=== PATIENT | male | born 1975 | race Caucasian/White ===

== ENCOUNTER 2016-12-29 06:08 | Emergency (ER) | payer OTHER ==
[2016-12-29] MEDS ORDERED: SODIUM CHLORIDE 1,000 ML IV STA (06:36)
[2016-12-29] MEDS ORDERED: ACETAMINOPHEN 1000 MG/100 ML VIAL (NON FORMULARY) IVPB ONE (06:36)
[2016-12-29] MEDS ORDERED: ALBUTEROL SO4 2.5/IPRATROPIUM 0.5 INH SOL 3 ML VIAL.NEB. NEB ONE (06:36)
--- NOTE | 2016-12-29 06:37 | PDOC ---
History of Present Illness - General Stated Complaint: DIFFICULTY BREATHING Time Seen by Provider: 12/29/16 06:28 History Source: Patient Exam Limitations: No Limitations - History of Present Illness Initial Comments: 12/29/16 07:00 41-year-old male with history of HIV presents to the ED with complaints of nasal congestion, sore throat cough, and myalgia for the past 4 days. Patient states also had an episode of anxiety this morning causing him shortness of breath and palpitations which resolved by the time he arrived here to the ER. Patient does state history of bronchitis and states smokes cigarettes daily. Patient denies recorded temperature, history of PCP, recent travel, and recent illness. Timing/Duration: reports: other (3-4 days) Severity: reports: moderate Modifying Factors: improves with: coughing Associated Symptoms: reports: cough, muscle aches, nasal drainage, shortness of breath, sore throat. denies: fever/chills, headache Past History - Past Medical History Allergies/Adverse Reactions: Allergies Allergy/AdvReac Type Severity Reaction Status Date / Time No Known Allergies Allergy Verified 12/29/16 06:36 Home Medications: Ambulatory Orders Abacavir/Dolutegravir/Lamivudi [Triumeq Tablet] 1 each PO DAILY 12/29/16 HIV: Yes - Psycho/Social/Smoking Cessation Hx Anxiety: No Suicidal Ideation: No Smoking History: Never smoked Have you smoked in the past 12 months: Yes Number of Cigarettes Smoked Daily: 5 Hx Alcohol Use: No Drug/Substance Use Hx: No Substance Use Type: None Patient Lives Alone: No Review of Systems - Review of Systems Able to Perform ROS?: Yes Constitutional: Yes: Weakness HEENTM: Yes: Nose Congestion, Throat Pain Respiratory: Yes: Cough, Shortness of Breath Cardiac (ROS): Yes: Palpitations ABD/GI: No: Symptoms Reported Musculoskeletal: Yes: Muscle Pain Integumentary: No: Symptoms Reported Neurological: Yes: Weakness (mild) Endocrine: No: Symptoms Reported Hematologic/Lymphatic: No: Symptoms Reported *Physical Exam - Physical Exam General Appearance: Yes: Nourished, Appropriately Dressed. No: Apparent Distress HEENT: positive: EOMI, NOÉ, TMs Normal, Pharynx Normal, Nasal Congestion. negative: Muffled/Hoarse voice ( nasally), Pharyngeal Erythema, Tonsillar Exudate, Rhinorrhea, Sinus Tenderness, TM Erythema Neck: positive: Supple. negative: Lymphadenopathy (R), Lymphadenopathy (L) Respiratory/Chest: positive: Lungs Clear, Normal Breath Sounds. negative: Respiratory Distress, Accessory Muscle Use Cardiovascular: positive: Regular Rhythm, Regular Rate. negative: Murmur Gastrointestinal/Abdominal: positive: Soft. negative: Tenderness Integumentary: positive: Normal Color, Warm, Moist Neurologic: positive: Motor Strength 5/5 (ambulatory). negative: Normal Mood/ Affect (mildly anxious) Heart Score/ECG Review - ECG Intrepretation Rhythm: Regular Rhythm (normal sinus rhythm at 86. No acute ST elevation or depression. QTC 423) ED Treatment Course - LABORATORY CBC & Chemistry Diagram: 12/29/16 01:00 12/29/16 01:00 Medical Decision Making - Medical Decision Making 12/29/16 08:07 Patient complains of nasal congestion, cough, and myalgia for the past 3-4 days but states had an anxiety attack this morning. Patient arrives here with nasal congestion, stable vital signs, and mild anxiety. Patient ordered for EKG, chest x-ray PA and lateral due to history of HIV along with CBC, comp lactic acid and DuoNeb. 12/29/16 09:27 chest x-ray negative for acute findings. Laboratory Tests 12/29/16 12/29/16 12/29/16 01:00 01:00 01:00 WBC 8.2 Hgb 13.1 Hct 38.4 Plt Count 273 D Sodium 138 Potassium 3.9 Chloride 102 Carbon Dioxide 27 Anion Gap 9 Creatinine 0.8 Creat Clearance w eGFR > 60 Random Glucose 98 Lactic Acid 1.1 Calcium 8.7 AST 19 D ALT 19 Total Protein 7.7 Albumin 3.7 Patient will be discharged home with azithromycin for treatment of bronchitis. *DC/Admit/Observation/Transfer Diagnosis at time of Disposition: Bronchitis - Discharge Dispostion Disposition: HOME Condition at time of disposition: Improved - Patient Instructions Printed Discharge Instructions: DI for Acute Bronchitis Additional Instructions: Please take antibiotics as prescribed and drink plenty of fluids. May take Tylenol for discomfort. Please follow-up with your PCP and to return to ED if symptoms worsen.
[2016-12-29 06:40] VITALS: BMI 27.7
[2016-12-29] MEDS ORDERED: ACETAMINOPHEN INJECTION 100 ML IVPB ONE (07:10)
[2016-12-29 07:17] LABS: BASOPHIL 0.3 % (0-2.0); EOSINOPHIL 1.4 % (0-4.5); MCH 29.1 pg (25.7-33.7); MEAN CELL VOLUME 85.6 fl (80-96); MEAN PLT VOLUME 7.2 fl (7.5-11.1); NEUTROPHILS 74.5 % (42.8-82.8); RDW 15.6 % (11.9-15.9); WHITE BLOOD COUNT 8.2 K/mm3 (4.0-10.0)
[2016-12-29 07:45] LABS: ALBUMIN 3.7 g/dl (3.4-5.0); ALK PHOS 68 U/L (45-117); ANION GAP 9 (8-16); BILIRUBIN,TOTAL 0.5 mg/dL (0.2-1.0); CALCIUM 8.7 mg/dL (8.5-10.1); CO2 27 mmol/L (21-32); CREATININE 0.8 mg/dL (0.7-1.3); GLUCOSE,RANDOM 98 mg/dL (74-106); SGOT/AST 19 U/L (15-37); SGPT/ALT 19 U/L (12-78); TOT PROT 7.7 g/dl (6.4-8.2)
[2016-12-29 08:20] LABS: PLATELET COUNT 273 K/MM3 (134-434); PLATELET ESTIMATE ADEQUATE (NORMAL)
--- NOTE | 2016-12-29 08:49 | EKG ---
Test Reason : Blood Pressure : / mmHG Vent. Rate : 086 BPM Atrial Rate : 086 BPM P-R Int : 150 ms QRS Dur : 090 ms QT Int : 354 ms P-R-T Axes : 067 080 055 degrees QTc Int : 423 ms NORMAL SINUS RHYTHM WITH SINUS ARRHYTHMIA NORMAL ECG WHEN COMPARED WITH ECG OF 30-JUL-2015 16:44, NO SIGNIFICANT CHANGE WAS FOUND Confirmed by TRICIA JONES MD ([id number]) on 12/29/2016 8:49:20 AM Referred By: Confirmed By:TRICIA JONES MD
[2016-12-29 09:59] VITALS: BP 127/75; PULSE 66; TEMP 98
== END 2016-12-29 09:59 | disposition home or self-care (01) ==
LOC: JER 06:08
PROC: 3E0F7GC Introduction of Other Therapeutic Substance into Respiratory Tract, Via Natural or Artificial Opening (ICD-10-PCS; principal; 2016-12-29)
PROC: 3E0337Z Introduction of Electrolytic and Water Balance Substance into Peripheral Vein, Percutaneous Approach (ICD-10-PCS; 2016-12-29)
DX: J20.9 Acute bronchitis, unspecified (principal); Z21 Asymptomatic human immunodeficiency virus [HIV] infection status
CPT/HCPCS: 36415; 71020-TC; 80053; 83605; 85025; 93005; 93010; 94640; 96360; 99282-25